=== PATIENT | female | born 1960 | race Two or more races ===

== ENCOUNTER 2021-09-16 11:54 | Outpatient (CLI) | payer OTHER ==
[2021-09-20] MEDS ORDERED: COZAAR50 MG PO (15:24)
== END 2021-09-16 11:56 | disposition home or self-care (01) ==
LOC: EDBD 11:54 → RAD 11:54
PROVIDERS: ATTEND Obstetrics & Gynecology
DX: J45.998 Other asthma (principal)

== ENCOUNTER 2021-09-22 05:44 | Day surgery (SDC) | payer OTHER ==
[~2021-09-22 05:44] MED LIST: COZAAR50 MG PO
[2021-09-22] MEDS ORDERED: MORGIDOX100 MG PO (12:14)
[2021-09-22] MEDS ORDERED: NAPR500T14 PO (12:14)
== END 2021-09-22 17:32 | disposition home or self-care (01) ==
LOC: CIR.AMB 05:44 → EDBD 12:15 → CIR.AMB 12:15
PROVIDERS: ATTEND Obstetrics & Gynecology
DX: D25.0 Submucous leiomyoma of uterus (principal); N85.01 Benign endometrial hyperplasia; Z20.822 Contact with and (suspected) exposure to COVID-19

== ENCOUNTER 2021-11-16 20:19 | Emergency (ER) | payer OTHER ==
[~2021-11-16] VITALS: Ht 157.5 cm; Wt 87.5 kg
[~2021-11-16 20:19] MED LIST changes: +MORGIDOX100 MG PO; +NAPR500T14 PO
[2021-11-16] MEDS ORDERED: LISINOPRIL-HCT1 EACH PO (20:50)
== END 2021-11-17 04:33 ==
LOC: ER 20:19
DX: R10.2 Pelvic and perineal pain (principal); R42 Dizziness and giddiness

== ENCOUNTER 2022-01-12 08:48 | Inpatient (IN) | payer OTHER ==
[~2022-01-12] VITALS: Ht 157.5 cm; Wt 87.1 kg
[~2022-01-12 08:48] MED LIST changes: +LISINOPRIL-HCT1 EACH PO
[2022-01-13] MEDS ORDERED: MEDROXYPROGESTE10 MG (08:34)
[2022-01-13] MEDS ORDERED: NAPROXEN500 MG (08:34)
[2022-01-13] MEDS ORDERED: Tylenol #3 PO (09:19)
[2022-01-13] MEDS ORDERED: NAPR500T14 PO (09:19)
== END 2022-01-13 13:08 | disposition home or self-care (01) | DRG 743 ==
LOC: CIR.AMB 08:48 → O/R 19:10 → SURG 19:10
PROVIDERS: ADMIT Obstetrics & Gynecology; ATTEND Obstetrics & Gynecology
PROC: 0UT74ZZ Resection of Bilateral Fallopian Tubes, Percutaneous Endoscopic Approach (ICD-10-PCS; 2022-01-12)
PROC: 0UT24ZZ Resection of Bilateral Ovaries, Percutaneous Endoscopic Approach (ICD-10-PCS; 2022-01-12)
PROC: 0TJB8ZZ Inspection of Bladder, Via Natural or Artificial Opening Endoscopic (ICD-10-PCS; 2022-01-12)
PROC: 0UT94ZZ Resection of Uterus, Percutaneous Endoscopic Approach (ICD-10-PCS; principal; 2022-01-12 18:45)
DX: D25.2 Subserosal leiomyoma of uterus (principal); Z20.822 Contact with and (suspected) exposure to COVID-19; N72 Inflammatory disease of cervix uteri; N80.0 Endometriosis of uterus